=== PATIENT | male | born 1940 | race Caucasian/White ===

== ENCOUNTER 2017-01-12 11:03 | Emergency (ER) | payer MEDICARE, MEDICAID ==
[~2017-01-12] VITALS: Ht 177.8 cm; Wt 77.2 kg
[2017-01-12] MEDS ORDERED: METO25TA35 PO (12:19)
[2017-01-12] MEDS ORDERED: INSU100V8 SQ (12:19)
[2017-01-12] MEDS ORDERED: REPA1TAB22 PO (12:19)
[2017-01-12] MEDS ORDERED: ASPI-496 PO (12:19)
[2017-01-12] MEDS ORDERED: [UNRECOGNIZED DRUG - MIXTURE] PO (12:19)
[2017-01-12] MEDS ORDERED: EMPA25TA PO (12:19)
[2017-01-12] MEDS ORDERED: LOSA50TA6 PO (12:19)
[2017-01-12] MEDS ORDERED: PENT400T2 PO (12:19)
[2017-01-12] MEDS ORDERED: PREG75CA PO (12:19)
[2017-01-12] MEDS ORDERED: ISOS20TA58 PO (12:19)
[2017-01-12] MEDS ORDERED: FURO-93 PO (12:19)
[2017-01-12 14:16] VITALS: BP 144/76
== END 2017-01-12 14:18 | disposition home or self-care (01) ==
LOC: ED 11:57
DX: S82.114A Nondisplaced fracture of right tibial spine, initial encounter for closed fracture (principal); S80.02XA Contusion of left knee, initial encounter; S80.01XA Contusion of right knee, initial encounter; E11.9 Type 2 diabetes mellitus without complications; W01.0XXA Fall on same level from slipping, tripping and stumbling without subsequent striking against object, initial encounter; Y93.01 Activity, walking, marching and hiking; Y92.89 Other specified places as the place of occurrence of the external cause; Y99.8 Other external cause status
CPT/HCPCS: 29505

== ENCOUNTER → 2017-03-04 | Outpatient (CLI) | payer MEDICARE, MEDICAID ==
[~2017-03-04] MED LIST: ASPI-496 PO; EMPA25TA PO; FURO-93 PO; INSU100V8 SQ; ISOS20TA58 PO; LOSA50TA6 PO; METO25TA35 PO; PENT400T2 PO; PREG75CA PO; REGADENOSON 0.4 MG/5 ML SYRINGE ONE; REPA1TAB22 PO; [UNRECOGNIZED DRUG - MIXTURE] PO
== END | disposition home or self-care (01) ==
LOC: CFH 06:53
PROVIDERS: ATTEND Internal Medicine Cardiovascular Disease
DX: I51.7 Cardiomegaly (principal); I10 Essential (primary) hypertension; I25.2 Old myocardial infarction
CPT/HCPCS: 78452; 93017; 93306; A9502; J2785

== ENCOUNTER 2018-02-07 17:44 | Inpatient (IN) | payer MEDICARE, MEDICAID ==
[~2018-02-07] VITALS: Ht 160 cm; Wt 71.5 kg
[~2018-02-07 17:44] MED LIST changes: -PENT400T2 PO; +PENT400T9 PO; -REGADENOSON 0.4 MG/5 ML SYRINGE ONE
[2018-02-07] MEDS ORDERED: SODIUM CHLORIDE FLUSH 10ML SYR IVF ONE (18:00)
[2018-02-07] MEDS ORDERED: SODIUM CHLORIDE 0.9% 1,000ML IVBOLUS ONE (18:00)
[2018-02-07 18:40] LABS: ALBUMIN 3.6 g/dL (3.4-5.0); ANION GAP 11 mmol/L (5-15); CALCIUM 8.8 mg/dL (8.5-10.1); CHLORIDE 100 mmol/L (98-107)
[2018-02-07 18:45] LABS: ALANINE AMINOTRANSFERASE 21 U/L (12-78); ALKALINE PHOSPHATASE 72 U/L (45-117); BILIRUBIN,TOTAL 0.4 mg/dL (0.2-1.0); CREATININE 2.04 mg/dL (0.7-1.3); TOTAL PROTEIN 7.6 g/dL (6.4-8.2); TROPONIN I < 0.015 ng/mL (0.000-0.045)
[2018-02-07 18:54] LABS: BASOPHILS # (AUTO) 0.05 x10^3/uL (0-0.1); BASOPHILS % (AUTO) 1 % (0-1); EOSINOPHILS # (AUTO) 0.63 x10^3/uL (0-0.4); EOSINOPHILS % (AUTO) 6 % (1-7); LYMPHOCYTES # (AUTO) 1.88 x10^3/uL (1-3.4); LYMPHOCYTES % (AUTO) 17 % (22-44); MD NO; MEAN CORPUSCULAR HEMOGLOBIN 32.5 pg (27.5-34.5); MEAN CORPUSCULAR HGB CONC 33.6 g/dL (33.2-36.2); MEAN CORPUSCULAR VOLUME 96.9 fL (81-97); MEAN PLATELET VOLUME 9.5 fL (7.4-10.4); MONOCYTES # (AUTO) 0.72 x10^3/uL (0.2-0.8); MONOCYTES % (AUTO) 6 % (2-9); NEUTROPHILS # (AUTO) 7.87 x10^3/uL (1.8-6.8); NEUTROPHILS % (AUTO) 71 % (42-75); PLATELET COUNT 185 x10^3/uL (130-400); RED BLOOD COUNT 4.22 x10^6/uL (4.38-5.82); RED CELL DISTRIBUTION WIDTH 15.8 % (9.4-14.8)
[2018-02-07 19:15] LABS: THYROID STIMULATING HORMONE 2.86 mIU/L (0.358-3.740)
[2018-02-07] MEDS ORDERED: ACETAMINOPHEN 325 MG TABLET PO PRN (20:30)
[2018-02-07] MEDS ORDERED: ONDANSETRON 2MG/ML, 2ML IVPush PRN (20:30)
[2018-02-07] MEDS ORDERED: METF500T27 PO (20:37)
[2018-02-07] MEDS ORDERED: ALLO300T PO (20:50)
[2018-02-07] MEDS ORDERED: ATOR40TA PO (20:50)
[2018-02-07] MEDS ORDERED: PENT400T9 PO (20:50)
[2018-02-07] MEDS ORDERED: PREG75CA PO (20:50)
[2018-02-07] MEDS ORDERED: SPIR25TA5 PO (20:50)
[2018-02-07] MEDS ORDERED: CLOP75TA PO (20:50)
[2018-02-07] MEDS ORDERED: [UNRECOGNIZED DRUG - CODE] PO (20:50)
[2018-02-07] MEDS ORDERED: BUME1TAB21 PO (20:50)
[2018-02-07] MEDS ORDERED: ACET325T14 PO (20:50)
[2018-02-07 21:00] VITALS: BP 131/72
[2018-02-07] MEDS: SODIUM CHLORIDE 0.9% 1,000 ML IV SCH (21:56)
[2018-02-07] MEDS: HEPARIN 5,000 UNITS/ML, 1ML SQ SCH (21:58)
[2018-02-07] MEDS: PENTOXIFYLLINE 400 MG TABLET.ER PO SCH (22:00)
[2018-02-07] MEDS: ASPIRIN 81 MG TABLET EC PO SCH (22:00)
[2018-02-07] MEDS: INSULIN LISPRO 100 UNITS/ML, PEN SQ-INSULIN SCH (23:23)
[2018-02-07 23:29] LABS: TROPONIN I < 0.015 ng/mL (0.000-0.045)
[2018-02-07 23:50] LABS: MICROSCOPIC NOT IND
[2018-02-08] VITALS (8 sets, daily range): BP systolic 100–157; BP diastolic 55–70
[2018-02-08 00:11] LABS: CULTURE INDICATED? NO
[2018-02-08 05:26] LABS: BASOPHILS # (AUTO) 0.05 x10^3/uL (0-0.1); BASOPHILS % (AUTO) 1 % (0-1); EOSINOPHILS # (AUTO) 0.55 x10^3/uL (0-0.4); EOSINOPHILS % (AUTO) 7 % (1-7); LYMPHOCYTES # (AUTO) 2.29 x10^3/uL (1-3.4); LYMPHOCYTES % (AUTO) 29 % (22-44); MD NO; MEAN CORPUSCULAR HEMOGLOBIN 33.1 pg (27.5-34.5); MEAN CORPUSCULAR HGB CONC 34.9 g/dL (33.2-36.2); MEAN CORPUSCULAR VOLUME 94.9 fL (81-97); MONOCYTES # (AUTO) 0.51 x10^3/uL (0.2-0.8); MONOCYTES % (AUTO) 6 % (2-9); NEUTROPHILS # (AUTO) 4.48 x10^3/uL (1.8-6.8); NEUTROPHILS % (AUTO) 57 % (42-75); PLATELET COUNT 173 x10^3/uL (130-400); RED BLOOD COUNT 3.91 x10^6/uL (4.38-5.82); RED CELL DISTRIBUTION WIDTH 15.3 % (9.4-14.8)
[2018-02-08 05:35] LABS: ANION GAP 9 mmol/L (5-15); CALCIUM 8.6 mg/dL (8.5-10.1); CHLORIDE 108 mmol/L (98-107)
[2018-02-08] MEDS: NICOTINE 21 MG/24 HR PATCH.TD24 TD SCH (05:37)
[2018-02-08 05:42] LABS: CREATININE 1.16 mg/dL (0.7-1.3); TROPONIN I < 0.015 ng/mL (0.000-0.045)
[2018-02-08] MEDS: INSULIN LISPRO 100 UNITS/ML, PEN SQ-INSULIN SCH ×4 (07:00→20:14)
[2018-02-08] MEDS: PENTOXIFYLLINE 400 MG TABLET.ER PO SCH ×3 (09:46→20:13)
[2018-02-08] MEDS: HEPARIN 5,000 UNITS/ML, 1ML SQ SCH ×2 (09:46→20:08)
[2018-02-08] MEDS: INSULIN GLARGINE 100 UNITS/ML, PEN SQ-INSULIN SCH (09:47)
[2018-02-08] MEDS: SODIUM CHLORIDE 0.9% 1,000 ML IV SCH (09:54)
[2018-02-08] MEDS ORDERED: PREGABALIN 75 MG CAPSULE PO SCH ×2 (16:30→21:00)
[2018-02-08] MEDS ORDERED: EMPAGLIFLOZIN PO SCH (17:00)
[2018-02-08] MEDS: ASPIRIN 81 MG TABLET EC PO SCH (20:13)
[2018-02-08] MEDS ORDERED: CLOPIDOGREL 75 MG TABLET PO SCH (21:00)
[2018-02-08] MEDS ORDERED: ATORVASTATIN 40 MG TABLET PO SCH (21:00)
[2018-02-09 02:00] VITALS: BP 154/56
[2018-02-09 04:32] LABS: ANION GAP 5 mmol/L (5-15); CALCIUM 8.7 mg/dL (8.5-10.1); CHLORIDE 114 mmol/L (98-107)
[2018-02-09 04:33] LABS: CREATININE 1.01 mg/dL (0.7-1.3)
[2018-02-09] MEDS: NICOTINE 21 MG/24 HR PATCH.TD24 TD SCH (05:53)
[2018-02-09 08:42] VITALS: BP 129/61
[2018-02-09] MEDS: INSULIN LISPRO 100 UNITS/ML, PEN SQ-INSULIN SCH ×2 (08:50→12:19)
[2018-02-09] MEDS: HEPARIN 5,000 UNITS/ML, 1ML SQ SCH (08:52)
[2018-02-09] MEDS: PENTOXIFYLLINE 400 MG TABLET.ER PO SCH ×2 (08:52)
[2018-02-09] MEDS: INSULIN GLARGINE 100 UNITS/ML, PEN SQ-INSULIN SCH (09:00)
[2018-02-09] MEDS ORDERED: ALLOPURINOL 300 MG TABLET PO SCH (09:00)
[2018-02-09] MEDS ORDERED: METOPROLOL TARTRATE 25 MG TABLET PO SCH (09:00)
[2018-02-09] MEDS ORDERED: LOSARTAN 25MG TABLET PO SCH (09:00)
[2018-02-09 11:27] VITALS: BP 124/61
== END 2018-02-09 14:50 | disposition home or self-care (01) | DRG 73 ==
LOC: SUATTDRO 19:57 → ED 20:17 → 4WST 20:22 → ED 20:36 → DCLOUNGE 02-09 13:40
PROVIDERS: ADMIT Hospitalist; ATTEND Hospitalist
DX: G90.8 Other disorders of autonomic nervous system (principal); N17.0 Acute kidney failure with tubular necrosis; R15.9 Full incontinence of feces; E78.5 Hyperlipidemia, unspecified; E86.0 Dehydration; I11.0 Hypertensive heart disease with heart failure; I25.10 Atherosclerotic heart disease of native coronary artery without angina pectoris; I25.2 Old myocardial infarction; I44.7 Left bundle-branch block, unspecified; I50.9 Heart failure, unspecified; R32 Unspecified urinary incontinence; E11.51 Type 2 diabetes mellitus with diabetic peripheral angiopathy without gangrene; E86.1 Hypovolemia; T50.2X5A Adverse effect of carbonic-anhydrase inhibitors, benzothiadiazides and other diuretics, initial encounter; Z79.4 Long term (current) use of insulin; Z86.73 Personal history of transient ischemic attack (TIA), and cerebral infarction without residual deficits
CPT/HCPCS: 36415; 70450; 71045; 80048; 80053; 81003; 82962; 83735; 83880; 84100; 84443; 84484; 85025; 93005; 93306; 96360; J1644; J1815; J7030